=== PATIENT | female | born 2000 | race Hispanic/Latino ===

== ENCOUNTER 2019-02-09 12:16 | Outpatient (CLI) | payer MEDICAID | END 2019-02-09 15:14 | disposition home or self-care (01) | LOC: LAB 12:16 → TRG 14:50 → LAB 15:14 | PROVIDERS: ATTEND Obstetrics & Gynecology | DX: O26.893 Other specified pregnancy related conditions, third trimester (principal); Z67.41 Type O blood, Rh negative; Z3A.29 29 weeks gestation of pregnancy | CPT/HCPCS: 86850; 86900; 86901; 96372; J2790 ==

== ENCOUNTER 2019-04-21 12:51 | Inpatient (IN) | payer MEDICAID ==
[2019-04-21] MEDS ORDERED: LACTATED RINGERS 1,000 ML ONE (13:29)
[2019-04-21] MEDS ORDERED: LACTATED RINGERS 1,000 ML IV SCH ×2 (14:00→15:00)
[2019-04-21] MEDS ORDERED: STADOL IV PRN (14:21)
[2019-04-21] MEDS ORDERED: SUBLIMAZE IV PRN (14:21)
[2019-04-21] MEDS ORDERED: XYLOCAINE 2% INFILTRATI ONE (14:21)
[2019-04-21] MEDS ORDERED: BRETHINE IVP PRN (14:21)
[2019-04-21] MEDS ORDERED: MINERAL OIL PO PRN (14:21)
[2019-04-21] MEDS ORDERED: BRETHINE SUB-Q PRN (14:21)
[2019-04-21 14:36] LABS: Basophils % (Auto) 0.1 % (0.0-1.8); Eosinophils % (Auto) 0.1 % (0.0-4.3); Hematocrit 29.9 % (30.3-42.9); Hemoglobin 10.4 gm/dl (10.1-14.3); Lymphocytes # (Auto) 1.2 K/mm3 (1.2-5.4); Lymphocytes % (Auto) 8.6 % (13.4-35.0); Mean Corpuscular HGB Conc 35 % (30-34); Mean Corpuscular Volume 82 fl (79-97); Monocytes # (Auto) 0.7 K/mm3 (0.0-0.8); Monocytes % (Auto) 5.2 % (0.0-7.3); Platelet Count 235 K/mm3 (140-440); Red Blood Count 3.65 M/mm3 (3.65-5.03)
[2019-04-21] MEDS ORDERED: PITOCin/NS 20 UNIT/1000ML DRIP 20 UNITS/1,000 ML BAG IV SCH (15:00)
[2019-04-21] MEDS ORDERED: PITOCin/NS 30 UNIT/500ML 30 UNITS/500 ML BAG IV SCH ×2 (15:00)
[2019-04-21] MEDS ORDERED: NARCAN 2 MG/2 ML IV PRN (15:07)
[2019-04-21] MEDS ORDERED: MARCAINE 0.25% INFILTRATI ONE (15:12)
--- NOTE | 2019-04-21 15:36 | Anesthesia Consultation ---
Anesthesia Consult and Med Hx Date of service: 04/21/19 - Airway Anesthetic Teeth Evaluation: Good ROM Head & Neck: Adequate Mental/Hyoid Distance: Adequate Mallampati Class: Class II - Pulmonary Exam CTA: Yes - Cardiac Exam Cardiac Exam: RRR - Pre-Operative Health Status ASA Pre-Surgery Classification: ASA2 Proposed Anesthetic Plan: Epidural - Pulmonary Hx Asthma: No - Cardiovascular System Hx Hypertension: No - Central Nervous System Hx Seizures: No Hx Psychiatric Problems: No - Endocrine Hx Renal Disease: No Hx Hypothyroidism: No Hx Hyperthyroidism: No - Hematic Hx Anemia: No Hx Sickle Cell Disease: No - Other Systems Hx Alcohol Use: No
[2019-04-21] MEDS ORDERED: fentaNYL-BUPIV 2 MCG/ML-0.125% 200 MCG/100 ML BAG EPIDURAL SCH (16:00)
--- NOTE | 2019-04-21 19:25 | History and Physical Report ---
History of Present Illness Date of examination: 04/21/19 Date of admission: 04/21/19 14:32 Chief complaint: I'm dilated History of present illness: Pt is a 18 year old who presents to L&D for labor augmentation after found being 5cm in office today. Pt is 39.6 weeks with EDC 04/22/19. Pt has had an uncomplicated course and entered care at 12 weeks. Pt is Rh negative and GBS negative. Past History Past Medical History: no pertinent history Past Surgical History: no surgical history Family/Genetic History: none Social history: single - Obstetrical History Expected Date of Delivery: 04/22/19 Actual Gestation: 39 Week(s) 6 Day(s) : 1 Medications and Allergies Allergies Allergy/AdvReac Type Severity Reaction Status Date / Time Sulfa (Sulfonamide AdvReac Rash Unverified 02/09/19 12:16 Antibiotics) RONATAN AdvReac Dizziness Uncoded 02/09/19 12:16 Home Medications Medication Instructions Recorded Confirmed Last Taken Type No Known Home Medications [No 04/21/19 04/21/19 Unknown History Reported Home Medications] Active Meds: Active Medications Butorphanol Tartrate (Stadol) 2 mg IV Q2H PRN PRN Reason: Pain , Severe (7-10) Ephedrine Sulfate (Ephedrine Sulfate) 10 mg IV Q2M PRN PRN Reason: Hypotension Ephedrine Sulfate (Ephedrine Sulfate) 10 mg IV Q2M PRN PRN Reason: Hypotension Fentanyl (Sublimaze) 100 mcg IV Q2H PRN PRN Reason: Labor Pain Oxytocin/Sodium Chloride (Pitocin/Ns 20 Unit/1000ml Drip) 20 units in 1,000 mls @ 125 mls/hr IV DIRECT VERNELL Oxytocin/Sodium Chloride (Pitocin/Ns 30 Unit/500ml) 30 units in 500 mls @ 1 mls/hr IV TITR VERNELL; Protocol Oxytocin/Sodium Chloride (Pitocin/Ns 30 Unit/500ml) 30 units in 500 mls @ 2 mls/hr IV TITR VERNELL; Protocol Last Admin: 04/21/19 16:09 Dose: 2 ml/hr, 2 mls/hr Documented by: Lactated Ringer's (Lactated Ringers) 1,000 mls @ 125 mls/hr IV DIRECT VERNELL Last Admin: 04/21/19 15:45 Dose: 125 mls/hr Documented by: Fentanyl/Bupivacaine/Sodium Chlor (Fentanyl-Bupiv 2 Mcg/Ml-0.125%) 200 mcg in 100 mls @ 12 mls/hr EPIDURAL TITR VERNELL; Protocol Last Admin: 04/21/19 16:07 Dose: 12 mls/hr Documented by: Mineral Oil (Mineral Oil) 30 ml PO QHS PRN PRN Reason: Constipation Naloxone HCl (Narcan 2 Mg/2 Ml) 0.2 mg IV Q5M PRN PRN Reason: Respiratory sedation Terbutaline Sulfate (Brethine) 0.25 mg SUB-Q ONCE PRN PRN Reason: Hyperstimulation/Hypertonicity Terbutaline Sulfate (Brethine) 0.25 mg IVP ONCE PRN PRN Reason: Hyperstimulation/Hypertonicity Review of Systems All systems: negative Gastrointestinal: abdominal pain Genitourinary: contractions - Vital Signs Vital signs: Vital Signs Temp Resp 97.8 F 18 04/21/19 13:19 04/21/19 13:19 Temp Pulse Resp BP Pulse Ox 97.9 F 82 18 117/59 99 04/21/19 15:23 04/21/19 19:16 04/21/19 13:19 04/21/19 19:11 04/21/19 19:16 - Physical Exam Breasts: Cardiovascular: Regular rate, Normal S1, Normal S2 Lungs: Positive: Clear to auscultation, Normal air movement Abdomen: Positive: normal appearance, soft, normal bowel sounds. Negative: distention, tenderness Genitourinary (Female): Positive: normal external genitalia, normal perenium Vulva: both: normal Vagina: Positive: normal moisture. Negative: discharge Cervix: Negative: lesion, discharge Uterus: Positive: normal size, normal contour Adnexa: both: normal Anus/Rectum: Positive: normal perianal skin, heme negative. Negative: rectal mass, hemorrhoids Extremities: Deep Tendon Reflex Grade: Normal +2 - Obstetrical Cervical Dilatation: 5 Cervical Effacement Percentage: 90 station: 0 Uterine Contraction Pattern: Regular Uterine Tone Measurement Phase: Contraction Uterine Contraction Intensity: Moderate Results Result Diagrams: 04/21/19 13:50 Abnormal lab results 04/21/19 Range/Units 13:50 WBC 13.4 H (4.5-11.0) K/mm3 Hct 29.9 L (30.3-42.9) % MCHC 35 H (30-34) % Lymph % (Auto) 8.6 L (13.4-35.0) % Seg Neutrophils % 86.0 H (40.0-70.0) % Seg Neutrophils # 11.5 H (1.8-7.7) K/mm3 All other labs normal. Assessment and Plan IUP at 39.6 weeks here for labor augmentation. Admit.Begin pitocin. Pt may have epidural when needed. Anticipate
--- NOTE | 2019-04-21 23:19 | Procedure Note ---
OB Delivery Note - Delivery Date of Delivery: 04/21/19 Surgeon: MARCO HOYOS Estimated blood loss: 200cc - Vaginal Delivery presentation: vertex Delivery position: OA Intrapartum events: none Delivery augmentation: pitocin Delivery monitor: external FHT, external uterine Route of delivery: Delivery placenta: spontaneous Delivery cord: nuchal cord, 3 umbilical vessels Delivery laceration: 1st degree Delivery repair: vicryl Anesthesia: epidural Delivery comments: Viable female delivered over intact perineum with loose nuchal easily reduced on the perineum. Weight 7 pounds 11 ounces. Apgars 8,9. Placenta delivered spontaneously and intact with 3vc. Small 1st laceration repaired with single suture. Excellent hemostasis. Pt tolerated procedure well. - Infant A at 1 minute: 8 at 5 minutes: 9 Infant Gender: Female
[2019-04-21] MEDS ORDERED: MILK OF MAGNESIA PO PRN (23:58)
[2019-04-21] MEDS ORDERED: DULCOLAX PR PRN (23:58)
[2019-04-21] MEDS ORDERED: ZOFRAN IV PRN (23:58)
[2019-04-21] MEDS ORDERED: NORCO 5/325 PO PRN (23:58)
[2019-04-21] MEDS ORDERED: SODIUM CHLORIDE FLUSH SYRINGE 10 ML IV PRN (23:58)
[2019-04-21] MEDS ORDERED: LANSINOH TP PRN (23:58)
[2019-04-21] MEDS ORDERED: PHENERGAN PO PRN (23:58)
[2019-04-21] MEDS ORDERED: TYLENOL PO PRN (23:58)
[2019-04-21] MEDS ORDERED: BENADRYL PO PRN (23:58)
[2019-04-21] MEDS ORDERED: TUCKS PAD TP PRN (23:58)
[2019-04-22] MEDS: IBUPROFEN PO SCH ×2 (06:51→18:26)
[2019-04-22] MEDS: COLACE PO SCH ×2 (10:00→22:17)
[2019-04-22] MEDS: PRENATAL VITAMIN PO SCH (10:01)
[2019-04-22 11:40] LABS: Hematocrit 28.2 % (30.3-42.9); Hemoglobin 9.4 gm/dl (10.1-14.3)
--- NOTE | 2019-04-22 19:14 | Post Anesthesia Evaluation ---
- Post Anesthesia Evaluation Patient Participated: Yes Airway Patent: Yes Stable Respiratory Function: Yes Nausea/Vomiting: No Temp > 96.8F: Yes Pain Manageable: Yes Adequeate Hydration: Yes Anesthesia Complications: No Block Receding Appropriately: Yes Patient on Ventilator: No
--- NOTE | 2019-04-23 09:01 | Progress Note ---
Assessment and Plan PPD 1 s/p . Doing well. Plan for discharge on today. Subjective - Subjective Date of service: 04/23/19 Interval history: Pt is a 18 year old who presents to L&D for labor augmentation after found being 5cm in office today. Pt is 39.6 weeks with EDC 04/22/19. Pt has had an uncomplicated course and entered care at 12 weeks. Pt is Rh negative and GBS negative. Patient reports: appetite normal, voiding normally, pain well controlled, ambulating normally [place]: doing well Objective - Vital Signs Latest vital signs: Vital Signs Temp Pulse Resp BP BP Pulse Ox 04/23/19 08:25 97.3 F L 80 20 109/59 100 04/23/19 00:45 97.4 F L 72 18 108/58 99 04/23/19 00:44 97.4 F L 71 18 108/58 99 04/22/19 16:12 98.0 F 81 18 113/71 04/22/19 12:28 97.5 F L 72 18 109/59 98 Intake and Output 04/22/19 04/23/19 04/23/19 22:59 06:59 14:59 Intake Total 720 360 Balance 720 360 Intake: Oral 480 Intake, Free Water 240 360 Other: Total, Intake Amount 480 # Voids Void 2 2 - Exam Breasts: Present: deferred Cardiovascular: Present: Regular rate, Normal S1, Normal S2 Lungs: Present: Clear to auscultation, Normal air movement Abdomen: Present: normal appearance, soft, normal bowel sounds Vulva: both: normal Uterus: Present: normal, firm Extremities: Present: normal Deep Tendon Reflex Grade: Normal +2 - Labs Labs: Abnormal lab results 04/22/19 Range/Units 11:27 Hgb 9.4 L (10.1-14.3) gm/dl Hct 28.2 L (30.3-42.9) %
--- NOTE | 2019-04-23 09:05 | Discharge Summary ---
Providers - Providers Date of Admission: 04/21/19 14:32 Date of discharge: 04/23/19 Attending physician: MARCO HOYOS Primary care physician: MARCO HOYOS Hospitalization Reason for admission: active labor Delivery: Episiotomy: none Laceration: none Other procedures: none Discharge diagnosis: IUP at term delivered baby: female Condition at discharge: Good Disposition: DC-01 TO HOME OR SELFCARE Plan - Discharge Medications Prescriptions: Ibuprofen [Motrin 600 MG tab] 600 mg PO Q6HR #40 tablet HYDROcodone/APAP 5-325 [[place] 5-325 mg TAB] 2 each PO Q6H PRN #20 tablet PRN Reason: Pain, Moderate (4-6) - Provider Discharge Summary Activity: routine, no sex for 6 weeks, no heavy lifting 4 weeks, no strenuous exercise Diet: routine Instructions: routine Additional instructions: [] Smoking cessation referral if applicable(refer to patient education folder for contact #) [] Refer to [facility]'s [facility] Booklet Call your doctor immediately for: * Fever > 100.5 * Heavy vaginal bleeding ( >1 pad per hour) * Severe persistent headache * Shortness of breath * Reddened, hot, painful area to leg or breast * Drainage or odor from incision. * Keep incision clean and dry at all times and follow doctor's instructions regarding bathing/showering - Follow up plan Follow up: MARCO HOYOS MD [Primary Care Provider] - 6 Weeks
[2019-04-23] MEDS: PRENATAL VITAMIN PO SCH (10:29)
[2019-04-23] MEDS: COLACE PO SCH (10:29)
[2019-04-23 17:12] VITALS: BP 110/69
== END 2019-04-23 14:50 | disposition home or self-care (01) | DRG 775 ==
LOC: TRG 12:51 → LD 14:29 → TRG 14:29 → LD 14:31 → TRG 14:32 → LD 14:32 → UNDOADMIN 14:32 → OB 04-22 01:34
PROVIDERS: ADMIT Obstetrics & Gynecology; ATTEND Obstetrics & Gynecology
PROC: 10E0XZZ Delivery of Products of Conception, External Approach (ICD-10-PCS; principal; 2019-04-21)
PROC: 0HQ9XZZ Repair Perineum Skin, External Approach (ICD-10-PCS; 2019-04-21)
PROC: 3E0R3BZ Introduction of Anesthetic Agent into Spinal Canal, Percutaneous Approach (ICD-10-PCS; 2019-04-21)
PROC: 00HU33Z Insertion of Infusion Device into Spinal Canal, Percutaneous Approach (ICD-10-PCS; 2019-04-21)
PROC: 3E0234Z Introduction of Serum, Toxoid and Vaccine into Muscle, Percutaneous Approach (ICD-10-PCS; 2019-04-23)
DX: O69.1XX0 Labor and delivery complicated by cord around neck, with compression, not applicable or unspecified (principal); Z3A.39 39 weeks gestation of pregnancy; Z37.0 Single live birth; O26.893 Other specified pregnancy related conditions, third trimester; Z67.41 Type O blood, Rh negative; O70.0 First degree perineal laceration during delivery; Z23 Encounter for immunization
CPT/HCPCS: 36415; 59025; 85014; 85018; 85025; 85027; 85461; 86592; 86850; 86900; 86901; G0378; J2590; J2790; J3010; J7120